=== PATIENT | female | born 1980 | race Caucasian/White ===

== ENCOUNTER 2022-07-28 06:10 | Inpatient (IN) | payer OTHER ==
[2022-07-28] MEDS ORDERED: CITRIC ACID/SODIUM CITRATE 30 ML UNIT-DOSE CUP PO ONE (06:30)
[2022-07-28] MEDS ORDERED: ELECTROLYTE-148 SOLN 500 ML IV ONE ×2 (06:30→07:00)
[2022-07-28 06:44] VITALS: BMI 31.2
[2022-07-28] MEDS ORDERED: OXYTOCIN 20 UNITS in 0.9% NS 20 UNIT/1,000 ML INFUS.BAG IV ONE (08:28)
[2022-07-28] MEDS ORDERED: ACETAMINOPHEN INJECTION 100 ML IVPB ONE (08:28)
[2022-07-28] MEDS ORDERED: morphine SULFATE/PF 1 MG/2 ML (2cc Syringe - QUVA) ONE (08:32)
[2022-07-28] MEDS ORDERED: ceFAZolin SODIUM 1 GM VIAL ONE (08:46)
[2022-07-28] MEDS ORDERED: ONDANSETRON 4 MG/2 ML VIAL ONE (08:57)
[2022-07-28] MEDS ORDERED: OXYTOCIN 10 UNITS/ML VIAL ONE (09:00)
[2022-07-28 09:12] LABS: HIV INTERPRETATION NEGATIVE (NEGATIVE)
[2022-07-28] MEDS: OXYTOCIN 20 UNITS in 0.9% NS 20 UNIT/1,000 ML INFUS.BAG IV SCH ×2 (09:48→17:02)
[2022-07-28] MEDS ORDERED: ELECTROLYTE-148 SOLN 1,000 ML IV SCH (10:00)
[2022-07-28] MEDS ORDERED: IBUPROFEN 800 MG/8 ML IJ IVPB PRN (10:02)
[2022-07-28] MEDS ORDERED: METHYLERGONOVINE MALEATE 0.2 MG/1 ML AMP IM PRN (10:02)
[2022-07-28] MEDS ORDERED: ACETAMINOPHEN 325 MG TABLET (FP) PO PRN (10:02)
[2022-07-29] MEDS: SIMETHICONE 80 MG TAB.CHEW (FP) PO PRN ×3 (06:07→20:01)
[2022-07-29] MEDS: IBUPROFEN 600 MG TABLET (FP) PO PRN ×3 (06:07→20:00)
[2022-07-29] MEDS: PRENATAL VITAMINS W/ FOLIC ACID TABLET (FP) PO SCH (09:13)
[2022-07-29] MEDS ORDERED: BISACODYL 10 MG SUPP.RECT RC PRN (10:02)
[2022-07-29 10:36] LABS: BASO % 0.3 % (0-2.0); EOS % 0.5 % (0-4.5); HEMATOCRIT 29.5 % (32.4-45.2); LYMPH % 11.6 % (8-40); MCH 29.8 pg (25.7-33.7); MCHC 33.7 g/dl (32.0-36.0); MEAN CELL VOLUME 88.3 fl (80-96); MONO % 5.1 % (3.8-10.2); NEUT % 82.5 % (42.8-82.8); PLATELET COUNT 82 10^3/uL (134-434); RBC 3.34 M/mm3 (3.60-5.2); RDW 14.6 % (11.6-15.6)
[2022-07-29] MEDS: SENNOSIDES/DOCUSATE COMBO (SENNA PLUS) TABLET (UD) PO PRN (20:01)
[2022-07-30] MEDS: SIMETHICONE 80 MG TAB.CHEW (FP) PO PRN ×5 (00:27→19:07)
[2022-07-30] MEDS: IBUPROFEN 600 MG TABLET (FP) PO PRN ×2 (00:27→10:12)
[2022-07-30] MEDS: oxyCODONE HCL 5 MG TABLET PO PRN ×4 (03:59→19:07)
[2022-07-30] MEDS: PRENATAL VITAMINS W/ FOLIC ACID TABLET (FP) PO SCH (10:12)
[2022-07-30 23:16] VITALS: TEMP 98.4
[2022-07-31] MEDS: IBUPROFEN 600 MG TABLET (FP) PO PRN ×2 (01:18→08:38)
[2022-07-31] MEDS: SIMETHICONE 80 MG TAB.CHEW (FP) PO PRN ×2 (01:20→08:38)
[2022-07-31] MEDS: SENNOSIDES/DOCUSATE COMBO (SENNA PLUS) TABLET (UD) PO PRN (08:38)
[2022-07-31 09:07] VITALS: BP 112/53; PULSE 60; RESP 18
[2022-07-31] MEDS: PRENATAL VITAMINS W/ FOLIC ACID TABLET (FP) PO SCH (09:47)
== END 2022-07-31 13:20 | disposition home or self-care (01) | DRG 788 ==
LOC: JLDR 06:10 → J3W 12:05
PROVIDERS: ADMIT Obstetrics & Gynecology; ATTEND Obstetrics & Gynecology
PROC: 10D00Z1 Extraction of Products of Conception, Low, Open Approach (ICD-10-PCS; principal; 2022-07-28)
DX: O32.2XX0 Maternal care for transverse and oblique lie, not applicable or unspecified (principal); O24.425 Gestational diabetes mellitus in childbirth, controlled by oral hypoglycemic drugs; Z3A.39 39 weeks gestation of pregnancy; Z37.0 Single live birth
CPT/HCPCS: 36415; 85025; 87389; 88307-TC